=== PATIENT | male | born 1995 ===

== ENCOUNTER 2017-07-25 23:37 | Emergency (ER) | payer BC, OTHER ==
[2017-07-25 23:38] VITALS: BMI 22.9
[2017-07-25 23:45] VITALS: O2SAT 99
[2017-07-25 23:47] VITALS: TEMP 98.3
--- NOTE | 2017-07-26 00:02 | ED PDOC ---
Arrival/HPI - General Chief Complaint: Medical Clearance Time Seen by Provider: 07/25/17 23:52 Historian: Patient - History of Present Illness Narrative History of Present Illness (Text): 07/26/17 00:02 Quique Martienz is a 22 year old male, whose past medical history includes migraines, who presents to the Emergency department complaining of palpitations after smoking marijuana earlier tonight. Patient also reports he feels "shaky" with slight headache. Patient denies any fever, chills, chest pain, shortness of breath, nausea, vomiting, diarrhea, urinary symptoms, back pain, neck pain, dizziness, or any other complaints. Time/Duration: Other (tonight) Symptom Onset: Gradual Symptom Course: Unchanged Activities at Onset: Light Context: Home Past Medical History - Provider Review Nursing Documentation Reviewed: Yes - Infectious Disease Hx of Infectious Diseases: None - Tetanus Immunization Tetanus Immunization: Unknown - Cardiac Hx Cardiac Disorders: No - Pulmonary Hx Respiratory Disorders: No - Neurological Hx Neurological Disorder: Yes Hx Migraine: Yes - HEENT Hx HEENT Disorder: No - Renal Hx Renal Disorder: Yes Hx Kidney Stones: Yes - Endocrine/Metabolic Hx Endocrine Disorders: No - Hematological/Oncological Hx Blood Transfusions: No Hx Blood Transfusion Reaction: No - Integumentary Hx Dermatological Disorder: No - Musculoskeletal/Rheumatological Hx Musculoskeletal Disorders: No Hx Falls: No - Gastrointestinal Hx Gastrointestinal Disorders: No - Genitourinary/Gynecological Hx Genitourinary Disorders: No - Psychiatric Hx Psychophysiologic Disorder: No Hx Substance Use: No - Surgical History Other/Comment: t&A - Anesthesia Hx Anesthesia Reactions: No - Suicidal Assessment Feels Threatened In Home Enviroment: No Family/Social History - Physician Review Nursing Documentation Reviewed: Yes Family/Social History: Unknown Family HX Smoking Status: Former Smoker Hx Alcohol Use: No Hx Substance Use: No Hx Substance Use Treatment: No Allergies/Home Meds Allergies/Adverse Reactions: Allergies sulfamethoxazole [From Bactrim] Allergy (Severe, Verified 07/25/17 23:52) ANAPHYLAXIS Sulfa (Sulfonamide Antibiotics) Allergy (Verified 07/25/17 23:52) ANAPHYLAXIS trimethoprim Allergy (Verified 07/25/17 23:52) ANAPHYLAXIS metoclopramide [From Reglan] Adverse Reaction (Verified 07/25/17 23:52) DIZZINESS Home Medications: Home Meds Medication Instructions Recorded Confirmed No Known Home Med 07/25/17 07/25/17 Review of Systems - Physician Review All systems were reviewed & negative as marked: Yes - Review of Systems Constitutional: Other (+shaky). absent: Fevers Eyes: Normal ENT: Normal Respiratory: Normal. absent: SOB, Cough Cardiovascular: Palpitations Gastrointestinal: Normal. absent: Abdominal Pain, Diarrhea, Nausea, Vomiting Genitourinary Male: Normal. absent: Dysuria, Frequency, Hematuria, Urinary Output Changes Musculoskeletal: Normal. absent: Back Pain, Neck Pain Skin: Normal. absent: Rash Neurological: Headache. absent: Dizziness Endocrine: Normal Hemo/Lymphatic: Normal Psychiatric: Normal Physical Exam Vital Signs Reviewed: Yes Vital Signs Temp Pulse Resp BP Pulse Ox 07/26/17 02:44 62 18 100/59 L 99 07/25/17 23:45 98.3 F 133 H 20 131/81 99 Temperature: Afebrile Blood Pressure: Normal Pulse: Tachycardic Respiratory Rate: Normal Appearance: Positive for: Well-Appearing, Non-Toxic, Comfortable Pain Distress: None Mental Status: Positive for: Alert and Oriented X 3 - Systems Exam Head: Present: Atraumatic, Normocephalic Pupils: Present: PERRL Extroacular Muscles: Present: EOMI Conjunctiva: Present: Normal Mouth: Present: Moist Mucous Membranes Neck: Present: Normal Range of Motion Respiratory/Chest: Present: Clear to Auscultation, Good Air Exchange. No: Respiratory Distress, Accessory Muscle Use Cardiovascular: Present: Normal S1, S2, Tachycardic. No: Murmurs Abdomen: Present: Normal Bowel Sounds. No: Tenderness, Distention, Peritoneal Signs Back: Present: Normal Inspection Upper Extremity: Present: Normal Inspection. No: Cyanosis, Edema Lower Extremity: Present: Normal Inspection. No: Edema Neurological: Present: GCS=15, CN II-XII Intact, Speech Normal Skin: Present: Warm, Dry, Normal Color. No: Rashes Psychiatric: Present: Alert, Oriented x 3, Normal Insight, Normal Concentration Medical Decision Making ED Course and Treatment: 07/26/17 00:02 Impression: 22 year old male complaining of palpitations after smoking marijuana tonight. Plan: -- EKG -- Labs, cardiac enzymes -- Ativan -- Reassess and disposition Progress Notes: Reviewed EKG, sinus tachycardia at 138 bpm. Non-specific ST/T wave changes. 07/26/17 02:43 On re-evaluation, patient feels better and is in no acute distress. I have discussed the results and plan with the patient, who expresses understanding. Patient in agreement with plan to be discharged home. Patient is stable for discharge. Patient was instructed to follow up with physician or return if symptoms worsen or new concerning symptoms arise. - Lab Interpretations Lab Results: 07/26/17 00:03 07/26/17 00:03 Lab Results 07/26/17 00:03: Urine Opiates Screen Negative, Urine Methadone Screen Negative, Ur Barbiturates Screen Negative, Ur Phencyclidine Scrn Negative, Ur Amphetamines Screen Negative, U Benzodiazepines Scrn Negative, U Oth Cocaine Metabols Negative, U Cannabinoids Screen Positive H 07/26/17 00:03: WBC 8.0, RBC 4.77, Hgb 14.8, Hct 42.0, MCV 88.1, MCH 31.0, MCHC 35.2, RDW 12.5, Plt Count 210, MPV 9.4 07/26/17 00:03: Sodium 139, Potassium 3.8, Chloride 102, Carbon Dioxide 24, Anion Gap 16, BUN 18, Creatinine 0.9, Est GFR ( Amer) > 60, Est GFR (Non- Af Amer) > 60, Random Glucose 175 H, Calcium 9.7, Total Bilirubin 0.6, AST 39, ALT 32, Alkaline Phosphatase 71, Lactate Dehydrogenase 417, Total Creatine Kinase 312 H, CK-MB (CK-2) 1.8, CK-MB (CK-2) % Cancelled, Troponin I < 0.01, Total Protein 8.0, Albumin 4.8, Globulin 3.2, Albumin/Globulin Ratio 1.5 I have reviewed the lab results: Yes - EKG Interpretation Interpreted by ED Physician: Yes Type: 12 lead EKG - Medication Orders Current Medication Orders: Discontinued Medications Lorazepam (Ativan) 0.5 mg IVP ONCE ONE Stop: 07/26/17 00:04 Last Admin: 07/26/17 00:24 Dose: 0.5 mg IVP Administration Document 07/26/17 00:24 RD (Rec: 07/26/17 00:24 RD [id number]) Charges for Administration # of IVP Administrations 1 - Scribe Statement The provider has reviewed the documentation as recorded by the Harleen Mcneil Provider Scribe Attestation: All medical record entries made by the Rohanibmerced were at my direction and personally dictated by me. I have reviewed the chart and agree that the record accurately reflects my personal performance of the history, physical exam, medical decision making, and the department course for this patient. I have also personally directed, reviewed, and agree with the discharge instructions and disposition. Disposition/Present on Arrival - Present on Arrival Any Indicators Present on Arrival: No History of DVT/PE: No History of Uncontrolled Diabetes: No Urinary Catheter: No History of Decub. Ulcer: No History Surgical Site Infection Following: None - Disposition Have Diagnosis and Disposition been Completed?: Yes Diagnosis: Palpitations, Adverse reaction to cannabis Disposition: HOME/ ROUTINE Disposition Time: 02:43 Patient Plan: Discharge Patient Problems: Current Active Problems Problem Status Onset Adverse reaction to cannabis Acute Palpitations Acute Condition: GOOD Discharge Instructions (ExitCare): Palpitations (ED), Cannabis Abuse (ED) Additional Instructions: Avoid marijuana use/follow up with your doctor as needed Forms: [employer] (Maori)
[2017-07-26 00:16] LABS: HEMOGLOBIN 14.8 g/dL (14.0-18.0); MEAN CELL VOLUME 88.1 fl (80.0-105.0); MEAN CORPUSCULAR HGB CONC 35.2 g/dl (31.0-37.0); MEAN PLATELET VOLUME 9.4 fl (7.0-11.0); RBC 4.77 10^6/uL (3.5-6.1); RED CELL DISTRIBUTION WIDTH 12.5 % (11.5-14.5)
[2017-07-26 00:29] LABS: ALB/GLOB RATIO 1.5 (1.1-1.8); ALBUMIN 4.8 g/dL (3.0-4.8); ALT/SGPT 32 U/L (7-56); AST/SGOT 39 U/L (17-59); BLOOD UREA NITROGEN 18 mg/dL (7-21); CALCIUM 9.7 mg/dL (8.4-10.5); GFR AFRICAN-AMERICAN > 60; GFR NON-AFRICAN AMERICAN > 60
[2017-07-26 00:40] LABS: TROPONIN I < 0.01 ng/mL
[2017-07-26 00:45] LABS: CK-MB 1.8 ng/mL (0.0-3.6)
[2017-07-26 01:30] LABS: BARBITURATES, UR NEGATIVE (NEGATIVE); BENZODIAZEPINES, UR NEGATIVE (NEGATIVE); OPIATES, UR NEGATIVE (NEGATIVE); PHENCYCLIDINE, UR NEGATIVE (NEGATIVE)
[2017-07-26 02:45] VITALS: BP 100/59; PULSE 62; RESP 18
--- NOTE | 2017-07-26 17:56 | CARD ---
APPROVED REPORT EKG Measurement Heart [id number] <Conclusion> Sinus tachycardia Otherwise normal ECG
== END 2017-07-26 02:45 | disposition home or self-care (01) ==
LOC: ED 23:37
DX: R00.2 Palpitations (principal); T40.7X5A Adverse effect of cannabis (derivatives), initial encounter; Y92.89 Other specified places as the place of occurrence of the external cause
CPT/HCPCS: 80053; 80324; 80345; 80346; 80349; 80353; 80358; 80361; 82550; 82553; 83615; 83992; 84484; 85027; 93005; 96374; 99282; J2060

== ENCOUNTER 2017-08-08 22:03 | Emergency (ER) | payer OTHER ==
[2017-08-08 22:12] VITALS: BP 140/91; PULSE 110; RESP 15; O2SAT 100
[2017-08-08 22:21] VITALS: BMI 21.5
--- NOTE | 2017-08-08 22:38 | ED PDOC ---
Arrival/HPI - General Chief Complaint: Chest Pain Time Seen by Provider: 08/08/17 22:08 Historian: Patient - History of Present Illness Narrative History of Present Illness (Text): 08/08/17 22:35 22 year old male, whose past medical history includes kidney stones, hematuria, migraines, and anxiety, who presents to the Emergency department complaining of mild left-sided chest [ain since this morning. Patient states pain became worse , sharp in quality, at 21:00 tonight. Patient states pain became 8/10, after which he took Xanax prescribed to him for anxiety but denies any relief. Patient also reports associated nausea, chills, and palpitations. Patient denies any fever, shortness of breath, vomiting, diarrhea, neck pain, headache, dizziness, or any other complaints. Symptom Onset: Gradual Symptom Course: Worsening Quality: Other (Sharp) Activities at Onset: Light Context: Home Past Medical History - Provider Review Nursing Documentation Reviewed: Yes - Infectious Disease Hx of Infectious Diseases: None - Tetanus Immunization Tetanus Immunization: Unknown - Cardiac Hx Cardiac Disorders: No - Pulmonary Hx Respiratory Disorders: No - Neurological Hx Neurological Disorder: Yes Hx Migraine: Yes - HEENT Hx HEENT Disorder: No - Renal Hx Renal Disorder: Yes Hx Kidney Stones: Yes - Endocrine/Metabolic Hx Endocrine Disorders: No - Hematological/Oncological Hx Blood Transfusions: No Hx Blood Transfusion Reaction: No - Integumentary Hx Dermatological Disorder: No - Musculoskeletal/Rheumatological Hx Musculoskeletal Disorders: No Hx Falls: No - Gastrointestinal Hx Gastrointestinal Disorders: No - Genitourinary/Gynecological Hx Genitourinary Disorders: No - Psychiatric Hx Psychophysiologic Disorder: No Hx Substance Use: No - Surgical History Other/Comment: t&A - Anesthesia Hx Anesthesia Reactions: No - Suicidal Assessment Feels Threatened In Home Enviroment: No Family/Social History - Physician Review Nursing Documentation Reviewed: Yes Family/Social History: Unknown Family HX Smoking Status: Former Smoker Hx Alcohol Use: No Hx Substance Use: No Hx Substance Use Treatment: No Allergies/Home Meds Allergies/Adverse Reactions: Allergies sulfamethoxazole [From Bactrim] Allergy (Severe, Verified 08/19/17 18:39) ANAPHYLAXIS Sulfa (Sulfonamide Antibiotics) Allergy (Verified 08/19/17 18:39) ANAPHYLAXIS trimethoprim Allergy (Verified 08/19/17 18:39) ANAPHYLAXIS metoclopramide [From Reglan] Adverse Reaction (Verified 08/19/17 18:39) DIZZINESS Review of Systems - Physician Review All systems were reviewed & negative as marked: Yes - Review of Systems Constitutional: Other (+chills). absent: Fevers Eyes: Normal ENT: Normal Respiratory: Normal. absent: SOB, Cough Cardiovascular: Chest Pain, Palpitations Gastrointestinal: Nausea. absent: Abdominal Pain, Diarrhea, Vomiting Genitourinary Male: Normal. absent: Dysuria, Frequency, Hematuria, Urinary Output Changes Musculoskeletal: Normal. absent: Back Pain, Neck Pain Skin: Normal. absent: Rash Neurological: Normal. absent: Headache, Dizziness Endocrine: Normal Hemo/Lymphatic: Normal Psychiatric: Normal Physical Exam Vital Signs Reviewed: Yes Vital Signs Temp Pulse Resp BP Pulse Ox 08/08/17 23:51 37.4 F L 08/08/17 22:11 98.7 F 110 H 15 140/91 H 100 Temperature: Afebrile Blood Pressure: Normal Pulse: Regular Respiratory Rate: Normal Appearance: Positive for: Well-Appearing, Non-Toxic, Comfortable Pain Distress: Mild Mental Status: Positive for: Alert and Oriented X 3 - Systems Exam Head: Present: Atraumatic, Normocephalic Pupils: Present: PERRL Extroacular Muscles: Present: EOMI Conjunctiva: Present: Normal Mouth: Present: Moist Mucous Membranes Neck: Present: Normal Range of Motion Respiratory/Chest: Present: Clear to Auscultation, Good Air Exchange. No: Respiratory Distress, Accessory Muscle Use Cardiovascular: Present: Regular Rate and Rhythm, Normal S1, S2 (Tenderness to palpation to left pectoral region, increased pain with movement, passive ROM of left arm does not produce pain, reproducible pain with active ROM of left arm). No: Murmurs Abdomen: Present: Normal Bowel Sounds. No: Tenderness, Distention, Peritoneal Signs Back: Present: Normal Inspection Upper Extremity: Present: Normal Inspection. No: Cyanosis, Edema Lower Extremity: Present: Normal Inspection. No: Edema Neurological: Present: GCS=15, CN II-XII Intact, Speech Normal Skin: Present: Warm, Dry, Normal Color. No: Rashes Psychiatric: Present: Alert, Oriented x 3, Normal Insight, Normal Concentration Medical Decision Making ED Course and Treatment: 08/08/17 22:35 Impression: 22 year old male complaining of left-sided chest pain this morning, worse since 21:00. Plan: -- EKG -- Chest X-ray -- Toradol -- Reassess and disposition Progress Notes: Reviewed EKG, sinus tachycardia at [address]-segment elevations or depressions, no T-wave inversions. - RAD Interpretation Radiology Orders: 08/08/17 22:31 CHEST PORTABLE [RAD] Stat - EKG Interpretation Interpreted by ED Physician: Yes Type: 12 lead EKG - Medication Orders Current Medication Orders: Discontinued Medications Ketorolac Tromethamine (Toradol) 60 mg IM STAT STA Stop: 08/08/17 22:32 Last Admin: 08/08/17 23:21 Dose: 60 mg MAR Pain Assessment Document 08/08/17 23:21 MELITA (Rec: 08/08/17 23:22 MELITA [id number]) Pain Reassessment Is this a pain reassessment? No IM Administration Charges Document 08/08/17 23:21 MELITA (Rec: 08/08/17 23:22 MELITA [id number]) Charges for Administration # of IM Administrations 1 - Scribe Statement The provider has reviewed the documentation as recorded by the Scribe Kandy Mcneil All medical record entries made by the Scribe were at my direction and personally dictated by me. I have reviewed the chart and agree that the record accurately reflects my personal performance of the history, physical exam, medical decision making, and the department course for this patient. I have also personally directed, reviewed, and agree with the discharge instructions and disposition. Disposition/Present on Arrival - Present on Arrival Any Indicators Present on Arrival: No History of DVT/PE: No History of Uncontrolled Diabetes: No Urinary Catheter: No History of Decub. Ulcer: No History Surgical Site Infection Following: None - Disposition Have Diagnosis and Disposition been Completed?: Yes Diagnosis: Chest wall pain Disposition: HOME/ ROUTINE Disposition Time: 01:00 Patient Plan: Discharge Condition: STABLE Discharge Instructions (ExitCare): Chest Pain (ED) Referrals: Juan Chaudhary MD [Primary Care Provider] - Follow up with primary Forms: [employer] (Maori)
[2017-08-08 23:52] VITALS: TEMP 37.4
--- NOTE | 2017-08-09 08:21 | RAD ---
HISTORY: chest pain COMPARISON: 04/07/2012 FINDINGS: LUNGS: No active pulmonary disease. PLEURA: No significant pleural effusion identified, no pneumothorax apparent. CARDIOVASCULAR: Normal. OSSEOUS STRUCTURES: No significant abnormalities. VISUALIZED UPPER ABDOMEN: Normal. OTHER FINDINGS: None. IMPRESSION: No active disease.
--- NOTE | 2017-08-09 18:00 | CARD ---
APPROVED REPORT EKG Measurement Heart [id number] <Conclusion> Sinus tachycardia Otherwise normal ECG
== END 2017-08-08 23:51 | disposition home or self-care (01) ==
LOC: ED 22:03
DX: R07.89 Other chest pain (principal); Z87.891 Personal history of nicotine dependence; Z88.2 Allergy status to sulfonamides
CPT/HCPCS: 71045; 93005; 96372; 99281; J1885

== ENCOUNTER 2017-08-19 18:36 | Emergency (ER) | payer OTHER ==
[2017-08-19 18:37] VITALS: BMI 21.5
[2017-08-19 18:44] VITALS: RESP 18
[2017-08-19] MEDS ORDERED: Sodium Chloride 0.9% 1,000 ML IV STA (19:00)
[2017-08-19 19:37] LABS: BASO # 0.01 [, K/mm3] (0.0-2.0); BASO % 0.1 % (0.0-3.0); EOS % 0.2 % (1.5-5.0); GRAN # 9.59 (1.4-6.5); GRAN % 90.1 % (50.0-68.0); HEMOGLOBIN 16.1 g/dL (14.0-18.0); LYMPH # 0.5 (1.2-3.4); LYMPH % 4.5 % (22.0-35.0); MEAN CELL VOLUME 86.4 fl (80.0-105.0); MEAN CORPUSCULAR HEMOGLOBIN 30.8 pg (25.0-35.0); MEAN CORPUSCULAR HGB CONC 35.7 g/dl (31.0-37.0); MEAN PLATELET VOLUME 9.7 fl (7.0-11.0); MONO # 0.5 (0.1-0.6); MONO % 5.1 % (1.0-6.0); PLATELET COUNT 227 [, 10^3/uL] (120.0-450.0); RBC 5.22 [, 10^6/uL] (3.5-6.1); RED CELL DISTRIBUTION WIDTH 12.4 % (11.5-14.5); WHITE BLOOD COUNT 10.6 [, 10^3/ul] (4.5-11.0)
--- NOTE | 2017-08-19 19:43 | ED PDOC ---
Arrival/HPI - General Historian: Patient - General Chief Complaint: GI Problem Time Seen by Provider: 08/19/17 18:55 - History of Present Illness Narrative History of Present Illness (Text): 08/19/17 19:40 22yo male with no PMhx who present with complaint of nausea, vomiting, diarrhea , diffuse abdominal pain, generalized bodyache since this morning. the mother who is by the bedside states the father was treated for Flu last week. Denies sore throat, neck pain, chest pain, recent travel, any other complaint. (Eugenia Burgess A) Past Medical History - Provider Review Nursing Documentation Reviewed: Yes - Infectious Disease Hx of Infectious Diseases: None - Tetanus Immunization Tetanus Immunization: Unknown - Cardiac Hx Cardiac Disorders: No - Pulmonary Hx Respiratory Disorders: No - Neurological Hx Neurological Disorder: Yes Hx Migraine: Yes - HEENT Hx HEENT Disorder: No - Renal Hx Renal Disorder: Yes Hx Kidney Stones: Yes - Endocrine/Metabolic Hx Endocrine Disorders: No - Hematological/Oncological Hx Blood Transfusions: No Hx Blood Transfusion Reaction: No - Integumentary Hx Dermatological Disorder: No - Musculoskeletal/Rheumatological Hx Musculoskeletal Disorders: No Hx Falls: No - Gastrointestinal Hx Gastrointestinal Disorders: No - Genitourinary/Gynecological Hx Genitourinary Disorders: No - Psychiatric Hx Psychophysiologic Disorder: No Hx Substance Use: No - Surgical History Hx Tonsillectomy: Yes - Anesthesia Hx Anesthesia Reactions: No - Suicidal Assessment Feels Threatened In Home Enviroment: No Family/Social History - Physician Review Nursing Documentation Reviewed: Yes Family/Social History: Unknown Family HX Smoking Status: Former Smoker Hx Alcohol Use: No Hx Substance Use: No Hx Substance Use Treatment: No Allergies/Home Meds Allergies/Adverse Reactions: Allergies sulfamethoxazole [From Bactrim] Allergy (Severe, Verified 08/19/17 18:39) ANAPHYLAXIS Sulfa (Sulfonamide Antibiotics) Allergy (Verified 08/19/17 18:39) ANAPHYLAXIS trimethoprim Allergy (Verified 08/19/17 18:39) ANAPHYLAXIS metoclopramide [From Reglan] Adverse Reaction (Verified 08/19/17 18:39) DIZZINESS Review of Systems - Physician Review All systems were reviewed & negative as marked: Yes - Review of Systems Constitutional: Normal Eyes: Normal ENT: Normal Respiratory: Normal Cardiovascular: Normal Gastrointestinal: Abdominal Pain, Diarrhea, Nausea, Vomiting. absent: Constipation, Hematochezia, Hematemesis Genitourinary Male: Normal Musculoskeletal: Normal Skin: Normal Neurological: Normal Endocrine: Normal Hemo/Lymphatic: Normal Psychiatric: Normal Physical Exam Vital Signs Reviewed: Yes Temperature: Afebrile Blood Pressure: Normal Pulse: Tachycardic Respiratory Rate: Normal Appearance: Positive for: Well-Appearing, Non-Toxic, Comfortable Pain Distress: None Mental Status: Positive for: Alert and Oriented X 3 - Systems Exam Head: Present: Atraumatic, Normocephalic Pupils: Present: PERRL Extroacular Muscles: Present: EOMI Conjunctiva: Present: Normal Mouth: Present: Moist Mucous Membranes Neck: Present: Normal Range of Motion Respiratory/Chest: Present: Clear to Auscultation, Good Air Exchange. No: Respiratory Distress, Accessory Muscle Use Cardiovascular: Present: Regular Rate and Rhythm, Normal S1, S2. No: Murmurs Abdomen: Present: Tenderness (Diffuse), Normal Bowel Sounds, Other (soft). No: Distention, Peritoneal Signs, Rebound, Guarding, McBurney's Point Tender, Rovsing's Sign Present Back: Present: Normal Inspection Upper Extremity: Present: Normal Inspection. No: Cyanosis, Edema Lower Extremity: Present: Normal Inspection. No: Edema Neurological: Present: GCS=15, CN II-XII Intact, Speech Normal Skin: Present: Warm, Dry, Normal Color. No: Rashes Psychiatric: Present: Alert, Oriented x 3, Normal Insight, Normal Concentration Vital Signs Temp Pulse Resp BP Pulse Ox 08/19/17 18:40 99.9 F H 120 H 18 99/67 L 97 Medical Decision Making ED Course and Treatment: 08/19/17 20:23 Pt present with stated history. He was hydrated in ED. Antiemesis, pepcid and toradol was given. He was noted to tolerate PO fluid in ED. His lab was unremarkable. Symptoms likely secondary to viral enteritis. He will be DC home with a rx of Pepcid and Zofran. Advised to drink plenty of fluid and eat BRAT diet. Referreed to his PMD. TRT ED for any new symptoms. (Eugenia Burgess A) - Lab Interpretations Lab Results: 08/19/17 19:30 08/19/17 19:30 Lab Results 08/19/17 19:30: Sodium 138, Potassium 4.4, Chloride 104, Carbon Dioxide 21, Anion Gap 17, BUN 18, Creatinine 0.9, Est GFR ( Amer) > 60, Est GFR (Non- Af Amer) > 60, Random Glucose 108, Calcium 10.6 H, Total Bilirubin 1.5 H, AST 36 , ALT 28, Alkaline Phosphatase 65, Total Protein 8.5 H, Albumin 4.9 H, Globulin 3.6, Albumin/Globulin Ratio 1.3, Lipase 49 08/19/17 19:30: PT 13.7 H, INR 1.20 H, APTT 31.2 08/19/17 19:30: Influenza Typ A,B (EIA) Negative for flu a/b 08/19/17 19:30: WBC 10.6 D, RBC 5.22, Hgb 16.1, Hct 45.1, MCV 86.4, MCH 30.8, MCHC 35.7, RDW 12.4, Plt Count 227, MPV 9.7, Gran % 90.1 H, Lymph % (Auto) 4.5 L , [place] % (Auto) 5.1, Eos % (Auto) 0.2 L, Baso % (Auto) 0.1, Gran # 9.59 H, Lymph # 0.5 L, [place] # 0.5, Eos # 0.0, Baso # 0.01, Neutrophils % (Manual) Pending, Lymphocytes % (Manual) Pending, Monocytes % (Manual) Pending - Medication Orders Current Medication Orders: Discontinued Medications Famotidine (Pepcid) 20 mg IVP STAT STA Stop: 08/19/17 19:01 Last Admin: 08/19/17 20:16 Dose: 20 mg IVP Administration Document 08/19/17 20:16 SS (Rec: 08/19/17 20:16 [id number] Charges for Administration # of IVP Administrations 1 Sodium Chloride (Sodium Chloride 0.9%) 1,000 mls @ 1,000 mls/hr IV .Q1H STA Stop: 08/19/17 19:59 Last Admin: 08/19/17 20:16 Dose: 1,000 mls/hr eMAR Start Stop Document 08/19/17 20:16 SS (Rec: 08/19/17 20:16 [id number] Intravenous Solution Start Date 08/19/17 Start Time 20:16 End Date 08/19/17 End time 21:16 Total Infusion Time 60 Ketorolac Tromethamine (Toradol) 30 mg IVP STAT STA Stop: 08/19/17 19:01 Last Admin: 08/19/17 20:16 Dose: 30 mg MAR Pain Assessment Document 08/19/17 20:16 SS (Rec: 08/19/17 20:17 SS [id number]) Pain Reassessment Is this a pain reassessment? No Sleep Is patient sleeping during reassessment? No Presence of Pain Presence of Pain Yes Location Upper or Lower Lower Pain Location Body Site Abdomen IVP Administration Document 08/19/17 20:16 SS (Rec: 08/19/17 20:17 SS [id number]) Charges for Administration # of IVP Administrations 1 Ondansetron HCl (Zofran Inj) 4 mg IVP STAT STA Stop: 08/19/17 19:01 Last Admin: 08/19/17 20:17 Dose: 4 mg IVP Administration Document 08/19/17 20:17 SS (Rec: 08/19/17 20:17 SS [id number]) Charges for Administration # of IVP Administrations 1 Disposition/Present on Arrival - Present on Arrival Any Indicators Present on Arrival: No History of DVT/PE: No History of Uncontrolled Diabetes: No Urinary Catheter: No History of Decub. Ulcer: No History Surgical Site Infection Following: None - Disposition Have Diagnosis and Disposition been Completed?: Yes Disposition Time: 21:15 Patient Plan: Discharge - Disposition Diagnosis: Enteritis Disposition: HOME/ ROUTINE Patient Problems: Current Active Problems Problem Status Onset Enteritis Acute Condition: STABLE Discharge Instructions (ExitCare): Abdominal Pain (ED), Acute Nausea and Vomiting (ED) Additional Instructions: Follow up with your doctor and drink plenty of fluid Follow BRAT diet (Banana, plain rice, crackers, tea, apple sauce) Return to ED for any new or worsening symptoms Prescriptions: Famotidine [Pepcid] 40 mg PO DAILY #15 tab Ondansetron ODT [Zofran ODT] 4 mg PO Q6 #7 odt Referrals: Juan Chaudhary MD [Primary Care Provider] - Follow up with primary Forms: [employer] (Tristanian)
[2017-08-19 19:55] LABS: ALBUMIN 4.9 g/dL (3.0-4.8); ALT/SGPT 28 U/L (7-56); AST/SGOT 36 U/L (17-59); BLOOD UREA NITROGEN 18 mg/dL (7-21); CALCIUM 10.6 mg/dL (8.4-10.5); GFR AFRICAN-AMERICAN > 60; GFR NON-AFRICAN AMERICAN > 60; LIPASE 49 U/L (23-300)
[2017-08-19 19:58] LABS: INR 1.2 (0.93-1.08); PARTIAL THROMBOPLASTIN TIME 31.2 Seconds (25.1-36.5); PROTHROMBIN TIME 13.7 SECONDS (9.4-12.5)
[2017-08-19 19:59] LABS: ALB/GLOB RATIO 1.3 (1.1-1.8)
[2017-08-19 21:21] LABS: ATYPICAL LYMPHOCYTE 1 % (0.0-0.0); BAND 1 % (0-2); LYMPHOCYTE 5 % (22.0-35.0); MONOCYTE 3 % (1.0-6.0); NEUTROPHIL 90 % (50.0-70.0)
[2017-08-19 22:15] VITALS: BP 123/63; PULSE 92; TEMP 98.2; O2SAT 99
== END 2017-08-19 21:42 | disposition home or self-care (01) ==
LOC: ED 18:36
DX: K52.9 Noninfective gastroenteritis and colitis, unspecified (principal); Z87.891 Personal history of nicotine dependence; Z88.2 Allergy status to sulfonamides
CPT/HCPCS: 80053; 83690; 85025; 85610; 85730; 87804; 96361; 96374; 96375; 99284; J1885; J2405; J7040